=== PATIENT | male | born 2000 | race Caucasian/White ===

== ENCOUNTER 2024-03-08 08:26 | Emergency (ER) | payer MEDICAID, SELFPAY ==
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
[2024-03-08 08:45] VITALS: BP 121/83; PULSE 70; RESP 20; TEMP 36.9; O2SAT 97; BMI 30.6
[2024-03-08] MEDS: cefTRIAXone 1GM VIAL 1 GM IM (09:15)
[2024-03-08] MEDS: LIDOCAINE 1% 5ML PF VIAL IM (09:15)
[2024-03-08 09:20] VITALS: BP 121/83; PULSE 70; RESP 20; TEMP 36.9; O2SAT 97
--- NOTE | 2024-03-18 17:57 | PC.NURSE ---
WOUND CULTURE REVIEWED BY Catrachita JENKINS APRN. NO CHANGES NEEDED AT THIS TIME
== END 2024-03-08 09:29 | disposition home or self-care (01) ==
PROVIDERS: Emergency Provider Nurse Practitioner Family; PCP Family Medicine
DX: L02.214 Cutaneous abscess of groin (principal)
CPT/HCPCS: 87070; 87077; 87186; 87205; 99213; G0381; J0696

== ENCOUNTER 2024-11-01 15:41 | Outpatient (CLI) | payer MEDICAID, SELFPAY ==
[2024-11-01 17:35] LABS: Basophils # 0.1 K/mm3 (0-0.2); Basophils % 0.8 % (0.1-2.0); Eosinophils # 0.2 Kmm3 (0.0-0.4); Eosinophils % 3.2 % (0.1-12.0); Hematocrit 47.3 % (42.0-52.0); Hemoglobin 16.1 g/dL (14.1-18.0); Immature Granulocytes # 0.01 10^3uL; Immature Granulocytes % 0.2 %; Lymphocytes # 1.9 K/mm3 (0.7-4.5); Lymphocytes % 30.1 % (10-50); Mean Corpuscular Hemoglobin 29.5 pg (27.0-31.2); Mean Corpuscular Volume 86.6 fl (80-94); Mean Platelet Volume 9.9 fl (7.4-10.4); Monocytes # 0.3 K/mm3 (0.1-1.0); Monocytes % 5.4 % (1.7-9.3); Neutrophils # 3.8 K/mm3 (1.8-7.8); Neutrophils % 60.3 % (37.0-80.0); Nucleated Red Blood Cells # 0 10^3/uL; Nucleated Red Blood Cells % 0 %; Platelet Count 274 K/mm3 (142-424); Red Blood Count 5.46 M/mm3 (4.60-6.20); Red Cell Distribution Width 11.8 % (11.5-17.5); Red Cell Distribution Width-SD 37.3 fL; White Blood Count 6.3 K/mm3 (4.8-10.8)
[2024-11-01 18:05] LABS: Alanine Aminotransferase 32 U/L (12-78); Albumin Level 4.6 g/dl (3.5-5.0); Albumin/Globulin Ratio 1.8 (1.1-1.8); Alkaline Phosphatase 73 U/L (38-126); Amylase 61 U/L (30-110); Aspartate Amino Transferase 23 U/L (17-59); Bilirubin,Total 0.4 mg/dl (0.2-1.3); Blood Urea Nitrogen 13 mg/dl (9-20); Calcium 9.2 mg/dl (8.4-10.2); Carbon Dioxide 31 mmol/L (22.0-30.0); Chloride 103 mmol/L (98-107); Estimated Glomerular Filt Rate 117 ml/min (>60); GFR (African American) 141 ML/MIN (>60); Globulin 2.6 g/dL (1.3-3.2); Glucose 111 mg/dl (74-100); Lipase 80 U/L (23-300); Sodium 139 mmol/L (136-145); Total Protein,Serum 7.2 g/dl (6.3-8.2)
[2024-11-01 18:32] LABS: Thyroid Stimulating Hormone 1.36 uIU/mL (0.465-4.68)
[2024-11-01 18:38] LABS: HIV Combo NEGATIVE (Negative)
[2024-11-01 19:39] LABS: Hepatitis C Ab Qual. W/ RFX NEGATIVE (Negative)
== END 2024-11-01 23:59 | disposition home or self-care (01) ==
LOC: LAB.DROPOF 11-02 10:22
PROVIDERS: PCP Nurse Practitioner Family; Visit Provider Nurse Practitioner Family
DX: R11.2 Nausea with vomiting, unspecified (principal); Z11.59 Encounter for screening for other viral diseases
CPT/HCPCS: 80053; 82150; 83036; 83690; 84443; 85025; 86803; 87389

== ENCOUNTER 2024-11-20 20:52 | Emergency (ER) | payer MEDICAID, SELFPAY ==
[2024-11-20 21:29] VITALS: BP 126/92; PULSE 80; RESP 14; TEMP 37.3; O2SAT 98; BMI 31.1
[2024-11-20 21:30] VITALS: BP 129/91; PULSE 86; O2SAT 98
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
[2024-11-20] MEDS: DEXAMETHASONE 4MG TABLET 10 MG PO (21:43)
[2024-11-20 21:48] VITALS: BP 126/92; PULSE 80; RESP 14; TEMP 37.3; O2SAT 98
== END 2024-11-20 21:49 | disposition home or self-care (01) ==
PROVIDERS: Emergency Provider Emergency Medicine; PCP Family Medicine
DX: J02.9 Acute pharyngitis, unspecified (principal); F17.210 Nicotine dependence, cigarettes, uncomplicated
CPT/HCPCS: 99283; J8540